=== PATIENT | male | born 2000 | race African-American/Black ===

== ENCOUNTER 2023-02-15 14:45 | Emergency (ER) | payer OTHER, MEDICAID, SELFPAY ==
[2023-02-15] VITALS (8 sets, daily range): BP systolic 130–144; BP diastolic 73–91; PULSE 69–100; RESP 12–25; TEMP 36.8; O2SAT 100
--- NOTE | ~2023-02-15 | CT_ITS ---
EXAMINATION: CT abdomen pelvis w con DATE: 02/15/2023 16:56 INDICATION: Abdominal pain TECHNIQUE: Computed tomography (CT) of the abdomen and pelvis was performed with 100 mL Omnipaque-350 intravenous contrast. Automated exposure control and iterative reconstruction technique were employe d. The dose-length product was 476.97 mGy-cm. COMPARISON: None FINDINGS: Lung bases are clear. Heart size is normal. No pericardial or pleural effusion. Liver, gallbladder, s pleen, pancreas, bilateral adrenal glands and kidneys are normal. Bladder is normal. Fluid in the dis skylar colon consistent with diarrhea. No bowel obstruction. The appendix is not visualized. No periceca l inflammatory change to suggest acute appendicitis. Minimal nonspecific free fluid in the deep pelvi s. No abscess or free intraperineal gas. No pathologically enlarged abdominal or pelvic lymphadenopat hy. Chronic appearing mild likely physiologic anterior wedging at T11-L1. Mild osteoarthritis at the bilateral hips with mild subarticular cystic change at the lateral rims of the bilateral acetabula. R ight supra-acetabular bone island. IMPRESSION: 1. Fluid in the distal colon consistent with nonspecific diarrhea. Correlate clinically for gastroent eritis. 2. Nonspecific minimal ascites in the deep pelvis. Reviewed, dictated and finalized at location A. IMPRESSION: 1. Fluid in the distal colon consistent with nonspecific diarrhea. Correlate cl inically for gastroenteritis. 2. Nonspecific minimal ascites in the deep pelvis.
--- NOTE | 2023-02-15 14:58 | ED.ABDPAIN ---
HPI - Abdominal Pain General Chief Complaint: Abdominal Pain Stated Complaint: nausea/vomiting, ab pain Time Seen by Provider: 02/15/23 14:57 History of Present Illness HPI narrative: Patient is a healthy 22-year-old male here with abdominal pain, nausea, vomiting, diarrhea x1 day. He states that over last 1 week he has had some cough, congestion and rhinorrhea. He notes that last night he began having nausea, vomiting, diarrhea. He denies any sick contacts. He states he has vomited several times. No blood in his vomit or stool. He denies any urinary symptoms or penile discharge. No prior abdominal surgeries or colonoscopies. He does note that he had some GI issues 2 years ago while he was a freshman in college, all the workups were negative at that time. He has not taken anything at home for his symptoms. He notes chills, has not checked his temperature. Related Data Allergies Allergy/AdvReac Type Severity Reaction Status Date / Time No Known Allergies Allergy Verified 02/15/23 15:44 Review of Systems Review of Systems: All systems reviewed & are unremarkable except as noted in HPI and below Exam Narrative: GENERAL: Well-appearing, well-nourished, and in no acute distress. HEAD: Normocephalic, atraumatic. EYES: PERRLA and EOMI. ENT: Nares clear. Mucous membranes moist. NECK: Supple. CHEST: Clear to auscultation. No respiratory distress. HEART: Regular rate and rhythm. Normal peripheral pulses. ABDOMEN: Soft, right upper and lower quadrant mild tenderness, no rebound or guarding, nondistended. EXTREMITIES: Normal range of motion. No edema. SKIN: Warm, dry, no rash. NEURO: No focal deficits. Alert and oriented x3. PSYCH: Normal mood and affect. Course Course Emergency Course: Chart review performed. Triage vitals grossly normal. No prior visits in our system. Patient seen evaluated, nontoxic appearing, mild right upper and lower quadrant tenderness, no rebound or guarding, nonsurgical abdomen on initial evaluation. He does note some respiratory symptoms that have been present for the last week. Will test for COVID, influenza, RSV. Abdominal lab work has been ordered. Morphine, Zofran, IV fluids have been ordered. Should patient continue to have pain or have abnormal lab work will reflex to abdominal imaging. Lab work reviewed. No leukocytosis, normal electrolytes, normal renal function, normal LFTs. Patient re-evaluated, continues to be in pain, pain seems to be more localized on the right side. Will do CT abdomen pelvis to evaluate appendix. CT shows fluid in distal colon consistent with nonspecific diarrhea. No evidence of acute appendicitis. Will reevaluate and plan for DC with PCP follow up. The results of pertinent diagnostic studies and exam findings were discussed. The patient?s provisional diagnosis and plan of care were discussed with the patient and present family. The patient and/or present family expressed understanding of the diagnosis and plan. The nurse was instructed to provide written instructions and appropriate follow-up information. The patient understands their need and responsibility to obtain additional follow-up as instructed. The risks of medications administered and prescribed were discussed with the patient and family present. Vital Signs Vital signs: Vital Signs Temperature 98.3 F 02/15/23 14:46 Pulse Rate 87 02/15/23 14:46 Respiratory Rate 16 02/15/23 14:46 Blood Pressure 144/91 H 02/15/23 14:46 Pulse Oximetry 100 02/15/23 14:46 Oxygen Delivery Room Air 02/15/23 14:46 Temperature 98.3 F 02/15/23 14:46 Pulse Rate 100 02/15/23 17:29 Respiratory Rate 12 02/15/23 17:29 Blood Pressure 142/87 H 02/15/23 17:29 Pulse Oximetry 100 02/15/23 17:29 Oxygen Delivery Room Air 02/15/23 14:46 MDM - Abdominal Pain Lab Data 02/15/23 15:02 02/15/23 15:02 Labs: Lab Results 02/15/23 02/15/23
[2023-02-15 15:08] LABS: Basophils Absolute Auto 0.1 K/mm3 (0.0-0.1); Basophils Percent Auto 0.6 % (0.2-1.2); Eosinophils Percent Auto 0.2 % (0-4.4); Hematocrit 46.7 % (42.0-52.0); Hemoglobin 14.9 g/dL (14.0-18.0); Immature Granulocyte Absolute 0.03 K/mm3 (0.00-0.031); Immature Granulocyte Percent A 0.4 % (0-0.5); Lymphocytes Absolute Auto 2.03 K/mm3 (0.9-3.2); Mean Corpuscular HGB Conc 31.9 g/dl (32-36); Mean Corpuscular Hemoglobin 27.4 pg (26-34); Mean Corpuscular Volume 85.8 fl (80-100); Mean Platelet Volume 9.3 fl (7.4-10.4); Monocytes Absolute Auto 0.4 K/mm3 (0.1-0.6); Monocytes Percent Auto 4.3 % (2.6-8.5); Neutrophils Percent Auto 70.5 % (45.5-73.1); Platelet Count Result 235 k/mm3 (150-375); Red Blood Count 5.44 M/mm3 (4.6-6.20); Red Cell Distribution Width 13.6 % (11.5-14.5); White Blood Count 8.5 K/mm3 (4.5-10.0)
[2023-02-15 15:20] LABS: Alanine Aminotransferase 46 U/L (6-50); Albumin Level 4.8 g/dL (3.5-5.1); Alkaline Phosphatase 78 U/L (38-126); Anion Gap 11 mmol/L (8-16); Aspartate Amino Transferase 35 U/L (17-59); Bilirubin,Total 0.7 mg/dL (0.2-1.3); Blood Urea Nitrogen 10 mg/dL (9-20); Carbon Dioxide 25 mmol/L (22-30); Chloride 104 mmol/L (98-107); Estimated CRCL calculation 103 ml/min; Estimated Glomerular Filt Rate > 60; Glucose 108 mg/dL (65-110); Lipase 48 U/L (23-300); Sodium 140 mmol/L (137-145)
[2023-02-15] MEDS: MORPHINE SULFATE (*CRX) 4 MG/ML INJ IV PUSH (15:48)
[2023-02-15] MEDS: ONDANSETRON INJ 4 MG/2 ML VIAL IV PUSH (15:48)
[2023-02-15] MEDS: SODIUM CHLORIDE 0.9% IV 1,000 ML 999 ML IV CONT (15:49)
[2023-02-15 17:14] LABS: Appearance Urine Clear (Clear); Bilirubin Urine Negative (Negative); Blood Urine Negative (Negative); Color Urine Yellow (Yellow); Glucose Urine UA Negative (Negative); Ketones Urine Negative (Negative); Leukocyte Esterase Ur Negative LEU/UL (Negative); Nitrate Urine Negative (Negative); Protein Urine 2+ mg/dL (Negative); Specific Grav Ur 1.015 (1.001-1.035); Urobilinogen Urine 0.2 mg/dL (<2.0); pH Urine 8.5 (5.0-9.0)
[2023-02-15 17:30] LABS: Influenza A QL RT-PCR Negative (Negative); Influenza B QL RT-PCR Negative (Negative); RSV RNA, RT-PCR Negative (Negative); SARS-CoV-2 RNA PCR Negative (Negative)
[2023-02-15 17:45] LABS: Bacteria Urine None Seen /hpf; Need Manual Microscopic Reviewed; Non Pathogenic Casts 0-2; RBC Urine 0-2 /hpf (0-2); Squamous Epithelial Cell Urine None seen /hpf (Few); WBC Urine 0-5 /hpf
[2023-02-15 17:48] LABS: Add Urine Microscopic? YES
== END 2023-02-15 17:41 | disposition home or self-care (01) ==
PROVIDERS: Emergency Provider Student in an Organized Health Care Education/Training Program
DX: R11.2 Nausea with vomiting, unspecified (principal); R19.7 Diarrhea, unspecified; R10.84 Generalized abdominal pain; Z20.822 Contact with and (suspected) exposure to COVID-19
CPT/HCPCS: 36415; 74177; 80053; 81001; 83690; 85025; 87637; 96361; 96374; 96375; 99284; J2270; J2405; J7030; Q9967

== ENCOUNTER 2023-03-23 18:42 | Emergency (ER) | payer OTHER, MEDICAID, SELFPAY ==
[2023-03-23 19:21] VITALS: BP 129/74; PULSE 52; RESP 16; TEMP 36.6; O2SAT 100
--- NOTE | 2023-03-23 19:54 | ED.URI ---
HPI - URI/Sore Throat General Chief Complaint: Upper Respiratory Infection Stated Complaint: Sore Throat/Headache Time Seen by Provider: 03/23/23 19:56 Source: patient, RN notes reviewed and old records reviewed Mode of arrival: ambulatory Limitations: no limitations History of Present Illness HPI Narrative: 22-year-old male presents to the [facility] with frontal headache, sinus pain, pressure, sniffling for about 1 week. Requesting a work note Related Data Allergies Allergy/AdvReac Type Severity Reaction Status Date / Time No Known Allergies Allergy Verified 03/23/23 19:21 Review of Systems Review of Systems: All systems reviewed & are unremarkable except as noted in HPI and below Constitutional: Constitutional: Reports no additional constitutional complaints Eyes: Eyes: Reports no additional eye complaints ENT: Reports as per HPI Cardiovascular: Cardiovascular: Reports no additional cardiovascular complaints, Denies chest pain and Denies dyspnea Respiratory: Respiratory: Reports no additional respiratory complaints, Denies chest congestion, Denies cough and Denies dyspnea Gastrointestinal: Gastrointestinal: Reports no additional gastrointestinal complaints, Denies abdominal pain, Denies nausea and Denies vomiting Musculoskeletal: Musculoskeletal: Reports no additional musculoskeletal complaints Integumentary/Breasts: Skin/Breast: Reports system reviewed and no additional complaints, except as docu Neurologic: Reports system reviewed and no additional complaints, except as documented Psychiatric: Psychiatric: Reports no additional psychiatric complaints Allergic/Immunologic: Allergic/Immunologic: Reports no additional allergic/immunologic complaints PMFSH Comments At the time of my signature, I reviewed and agree with the nursing past medical, surgical, social, and family history. There is no relevant family history pertinent to the patient complaint. Exam Const: General: cooperative, healthy appearing, comfortable, no acute distress, well developed, alert and well nourished Nutritional Appearance: well nourished Orientation/consciousness: patient oriented x3 Limitations: no limitations HENMT: Head: normal to inspection Ears: hearing grossly normal bilaterally, external ears normal, TM's normal bilaterally, EAC's normal, mastoids normal and no periauricular adenopathy Face/Nose/Sinus: Normal external nose present, Normal nares present, Normal nasal mucous membranes and turbinates present, normal facial exam and face symmetric Face and sinus: normal facial exam and face symmetric Mouth: Yes Normal oral and palatal mucosa present, Yes lip normal and Yes moist mucous membranes Throat: posterior oropharynx normal, uvula midline and postnasal drainage Eyes: General: appearance normal, both eyes and all related structures Alignment and Position: alignment normal Periorbital: periorbital findings normal Pupils: Equal, round and reactive pupils present EOM: EOMs intact bilaterally Neck: Neck: normal visual inspection, full ROM, no lymphadenopathy and no meningeal signs Chest: Chest palpation & inspection: normal inspection of the chest Resp: Effort & Inspection: normal respiratory effort and able to speak in complete sentences Auscultation: clear to auscultation bilaterally, no crackles, no rales, no rhonchi and no wheezes Cardio: Rate: regular rate Rhythm: regular rhythm Back/Spine/Pelvis: Cervical Spine: cervical ROM normal Skin: General skin exam: normal color and no rashes or lesions noted Lesions: no lesions Rashes: no rashes Wounds: no wounds Neuro: General: patient oriented x3, gait normal, tone normal, moves all extremities and no meningeal signs Cranial nerves: Yes Equal, round and reactive pupils present Cognition (Neuro): normal cognition Speech: normal speech Gait exam (Neuro): Normal gait present Extrem: General: normal to inspection, full ROM, capillary refill normal and normal gait Psy
== END 2023-03-23 20:08 | disposition home or self-care (01) ==
PROVIDERS: Emergency Provider Nurse Practitioner
DX: J01.40 Acute pansinusitis, unspecified (principal)
CPT/HCPCS: 99213; G0463